=== PATIENT | female | born 1980 | race Caucasian/White ===

== ENCOUNTER 2021-11-22 19:58 | Inpatient (IN) ==
[2021-11-22] MEDS ORDERED: NON-FORMULARY MEDICATION 1 EACH EACH (Albuterol Sulfate 8.5 GM Hfa.Aer.Ad) IH PRN (21:32)
[2021-11-22] MEDS ORDERED: D5% in Water 1,000 ML IVC PRN (21:36)
[2021-11-22] MEDS ORDERED: Dextrose Gel 15 GM/37.5 ML TUBE PO PRN (21:36)
[2021-11-22] MEDS ORDERED: *HR* Dextrose 50 % in Water (Syg) 50 ML SYRINGE IVP PRN (21:36)
[2021-11-22] MEDS ORDERED: Albuterol 2.5 MG/3 ML NEBULIZER IH PRN (22:00)
[2021-11-22] MEDS: tiZANidine 4 MG TABLET PO PRN (22:22)
[2021-11-23 07:09] LABS: Basophils # 0.1 K/mcL (0.0-0.2); Basophils % 0.6 %; Eosinophils # 0.4 K/mcL (0.0-0.6); Eosinophils % 4.3 %; Hematocrit 38.7 % (35.3-44.9); Hemoglobin 11.6 g/dL (11.5-15.4); Immature Granulocytes % 0.8 % (0-4); Lymphocytes # 1.8 K/mcL (0.6-4.6); Lymphocytes % 19.9 %; Mean Corpuscular Hemoglobin 24.4 pg (28.0-33.3); Mean Corpuscular Volume 81.5 fL (83.0-100.0); Mean Platelet Volume 10.8 fL (9.4-12.4); Monocytes # 0.7 K/mcL (0.0-1.3); Monocytes % 7.6 %; Nucleated Red Blood Cells 0.4 /100 WBC (0); Platelet Count 279 K/mcL (140-400); Red Blood Count 4.75 M/mcL (3.82-4.97); Red Cell Distribution Width 16.7 % (11.5-14.5); Segmented Neutrophils % 66.8 %; White Blood Count 8.9 K/mcL (4.3-11.1)
[2021-11-23 07:23] LABS: BUN/Creatinine Ratio 12 (6-26); Blood Urea Nitrogen 9 mg/dL (6-20); Calcium 9.2 mg/dL (8.6-10.3); Carbon Dioxide 31 mEq/L (23-29); Chloride 98 mEq/L (98-107); Glucose 195 mg/dL (70-105); Osmolality,Calculated 292 (280-300); Potassium 3.9 mEq/L (3.5-5.1); Sodium 139 mEq/L (136-145); eGFR For African Americans > 60 (> 60); eGFR For Non-African Americans > 60 (> 60)
[2021-11-23] MEDS: Multivit/Ca/Min/Fe/FA 1 TAB TABLET PO SCH (08:20)
[2021-11-23] MEDS: Vitamin B Complex/Vit C/Vit E 1 EACH TABLET PO SCH (08:20)
[2021-11-23] MEDS: Metoprolol XL (24 HR) Succ 50 MG TAB.ER.24H PO SCH (08:21)
[2021-11-23] MEDS: lamoTRIgine 100 MG TABLET PO SCH ×2 (08:21→17:06)
[2021-11-23] MEDS: lisinopriL 5 MG TABLET PO SCH (08:21)
[2021-11-23] MEDS: Loratadine 10 MG TABLET PO SCH (08:21)
[2021-11-23] MEDS: Pregabalin 50 MG CAPSULE PO SCH ×3 (08:21→21:29)
[2021-11-23] MEDS: Furosemide 20 MG TABLET PO SCH (08:22)
[2021-11-23] MEDS: *HR* Enoxaparin 40 MG/0.4 ML SYRINGE SQ SCH (08:23)
[2021-11-23] MEDS: Insulin LISPRO 300 UNITS/3 ML VIAL SUBQ SCH ×3 (08:24→16:25)
[2021-11-23] MEDS: ALPHA LIPOIC ACID 600 MG PO SCH (08:29)
[2021-11-23] MEDS: (Fish Oil 1,000 Mg Softgel) PO SCH ×2 (08:29→21:30)
[2021-11-23] MEDS ORDERED: *HR* Metformin 500 MG TABLET PO SCH (09:00)
[2021-11-23] MEDS ORDERED: Cholecalciferol (D-3) 1,000 UNIT (25MCG) TABLET PO SCH (09:00)
[2021-11-23] MEDS: Ammonium Lactate 30 APPL/225 GM BOTTLE TP SCH (09:05)
[2021-11-23] MEDS: Ketoconazole 2% CRM 15 GM TUBE TP SCH (09:05)
[2021-11-23] MEDS: Cholecalciferol (D-3) 1,000 UNIT (25MCG) TABLET PO SCH (09:05)
[2021-11-23] MEDS: *HR* HYDROcodone/Acet 5/325 mg TABLET PO PRN (17:06)
[2021-11-23] MEDS: ARGININE 500 MG PO SCH (17:06)
[2021-11-23] MEDS: tiZANidine 4 MG TABLET PO PRN (17:06)
[2021-11-23] MEDS: *HR* Metformin 500 MG TABLET PO SCH (17:06)
[2021-11-23] MEDS: Mirtazapine 15 MG TABLET PO SCH (21:28)
[2021-11-24] MEDS: *HR* Enoxaparin 40 MG/0.4 ML SYRINGE SQ SCH (05:37)
[2021-11-24] MEDS: Insulin LISPRO 300 UNITS/3 ML VIAL SUBQ SCH ×4 (07:29→17:21)
[2021-11-24] MEDS: *HR* Metformin 500 MG TABLET PO SCH ×2 (07:31→17:21)
[2021-11-24] MEDS: Vitamin B Complex/Vit C/Vit E 1 EACH TABLET PO SCH (07:31)
[2021-11-24] MEDS: Pregabalin 50 MG CAPSULE PO SCH ×3 (07:31→19:59)
[2021-11-24] MEDS: Multivit/Ca/Min/Fe/FA 1 TAB TABLET PO SCH (07:31)
[2021-11-24] MEDS: Loratadine 10 MG TABLET PO SCH (07:32)
[2021-11-24] MEDS: lamoTRIgine 100 MG TABLET PO SCH ×2 (07:32→17:21)
[2021-11-24] MEDS: Furosemide 20 MG TABLET PO SCH (07:32)
[2021-11-24] MEDS: *HR* HYDROcodone/Acet 5/325 mg TABLET PO PRN ×2 (07:32→21:59)
[2021-11-24] MEDS: lisinopriL 5 MG TABLET PO SCH (07:32)
[2021-11-24] MEDS: Ammonium Lactate 30 APPL/225 GM BOTTLE TP SCH (07:32)
[2021-11-24] MEDS: Cholecalciferol (D-3) 1,000 UNIT (25MCG) TABLET PO SCH (07:32)
[2021-11-24] MEDS: tiZANidine 4 MG TABLET PO PRN ×2 (07:32→21:59)
[2021-11-24] MEDS: Metoprolol XL (24 HR) Succ 50 MG TAB.ER.24H PO SCH (07:32)
[2021-11-24] MEDS: (Fish Oil 1,000 Mg Softgel) PO SCH ×2 (07:33→20:00)
[2021-11-24] MEDS: Ketoconazole 2% CRM 15 GM TUBE TP SCH (07:33)
[2021-11-24] MEDS: ALPHA LIPOIC ACID 600 MG PO SCH (07:33)
[2021-11-24] MEDS: ARGININE 500 MG PO SCH (17:22)
[2021-11-24] MEDS: Mirtazapine 15 MG TABLET PO SCH (19:59)
[2021-11-25] MEDS: Nystatin POWDER 30 GM BOTTLE TP SCH ×4 (03:26→20:16)
[2021-11-25] MEDS: *HR* Enoxaparin 40 MG/0.4 ML SYRINGE SQ SCH (05:19)
[2021-11-25] MEDS: Insulin LISPRO 300 UNITS/3 ML VIAL SUBQ SCH ×3 (08:01→16:47)
[2021-11-25] MEDS: Loratadine 10 MG TABLET PO SCH (08:07)
[2021-11-25] MEDS: Vitamin B Complex/Vit C/Vit E 1 EACH TABLET PO SCH (08:07)
[2021-11-25] MEDS: Metoprolol XL (24 HR) Succ 50 MG TAB.ER.24H PO SCH (08:08)
[2021-11-25] MEDS: Furosemide 20 MG TABLET PO SCH (08:08)
[2021-11-25] MEDS: lamoTRIgine 100 MG TABLET PO SCH ×2 (08:08→17:03)
[2021-11-25] MEDS: Multivit/Ca/Min/Fe/FA 1 TAB TABLET PO SCH (08:08)
[2021-11-25] MEDS: Cholecalciferol (D-3) 1,000 UNIT (25MCG) TABLET PO SCH (08:08)
[2021-11-25] MEDS: *HR* Metformin 500 MG TABLET PO SCH ×2 (08:08→17:03)
[2021-11-25] MEDS: lisinopriL 5 MG TABLET PO SCH (08:08)
[2021-11-25] MEDS: Pregabalin 50 MG CAPSULE PO SCH ×3 (08:08→20:15)
[2021-11-25] MEDS: ALPHA LIPOIC ACID 600 MG PO SCH (08:09)
[2021-11-25] MEDS: (Fish Oil 1,000 Mg Softgel) PO SCH ×2 (08:09→20:20)
[2021-11-25] MEDS: tiZANidine 4 MG TABLET PO PRN ×2 (08:17→17:06)
[2021-11-25] MEDS: Ammonium Lactate 30 APPL/225 GM BOTTLE TP SCH (08:20)
[2021-11-25] MEDS: Ketoconazole 2% CRM 15 GM TUBE TP SCH (08:21)
[2021-11-25] MEDS: ARGININE 500 MG PO SCH (17:09)
[2021-11-25] MEDS: *HR* HYDROcodone/Acet 5/325 mg TABLET PO PRN (18:56)
[2021-11-25] MEDS: Mirtazapine 15 MG TABLET PO SCH (20:15)
[2021-11-26] MEDS: *HR* Enoxaparin 40 MG/0.4 ML SYRINGE SQ SCH (06:12)
[2021-11-26] MEDS: Insulin LISPRO 300 UNITS/3 ML VIAL SUBQ SCH ×3 (08:01→17:29)
[2021-11-26] MEDS: tiZANidine 4 MG TABLET PO PRN ×3 (08:07→23:55)
[2021-11-26] MEDS: Pregabalin 50 MG CAPSULE PO SCH ×3 (08:07→23:56)
[2021-11-26] MEDS: lamoTRIgine 100 MG TABLET PO SCH ×2 (08:07→17:28)
[2021-11-26] MEDS: Multivit/Ca/Min/Fe/FA 1 TAB TABLET PO SCH (08:07)
[2021-11-26] MEDS: *HR* Metformin 500 MG TABLET PO SCH ×2 (08:07→17:28)
[2021-11-26] MEDS: *HR* HYDROcodone/Acet 5/325 mg TABLET PO PRN ×3 (08:08→23:53)
[2021-11-26] MEDS: Furosemide 20 MG TABLET PO SCH (08:08)
[2021-11-26] MEDS: Metoprolol XL (24 HR) Succ 50 MG TAB.ER.24H PO SCH (08:08)
[2021-11-26] MEDS: Cholecalciferol (D-3) 1,000 UNIT (25MCG) TABLET PO SCH (08:08)
[2021-11-26] MEDS: Ammonium Lactate 30 APPL/225 GM BOTTLE TP SCH (08:08)
[2021-11-26] MEDS: Loratadine 10 MG TABLET PO SCH (08:08)
[2021-11-26] MEDS: Vitamin B Complex/Vit C/Vit E 1 EACH TABLET PO SCH (08:08)
[2021-11-26] MEDS: lisinopriL 5 MG TABLET PO SCH (08:08)
[2021-11-26] MEDS: (Fish Oil 1,000 Mg Softgel) PO SCH ×2 (08:09→23:57)
[2021-11-26] MEDS: ALPHA LIPOIC ACID 600 MG PO SCH (08:09)
[2021-11-26] MEDS: Ketoconazole 2% CRM 15 GM TUBE TP SCH (08:09)
[2021-11-26] MEDS: Nystatin POWDER 30 GM BOTTLE TP SCH ×2 (08:09→15:10)
[2021-11-26] MEDS: ARGININE 500 MG PO SCH (17:26)
[2021-11-26] MEDS: Mirtazapine 15 MG TABLET PO SCH (23:57)
[2021-11-27] MEDS: Nystatin POWDER 30 GM BOTTLE TP SCH ×4 (02:30→20:59)
[2021-11-27] MEDS: lisinopriL 5 MG TABLET PO SCH (08:58)
[2021-11-27] MEDS: lamoTRIgine 100 MG TABLET PO SCH ×2 (08:58→17:03)
[2021-11-27] MEDS: Vitamin B Complex/Vit C/Vit E 1 EACH TABLET PO SCH (08:58)
[2021-11-27] MEDS: Multivit/Ca/Min/Fe/FA 1 TAB TABLET PO SCH (08:58)
[2021-11-27] MEDS: *HR* Enoxaparin 40 MG/0.4 ML SYRINGE SQ SCH (08:58)
[2021-11-27] MEDS: Pregabalin 50 MG CAPSULE PO SCH ×3 (08:58→21:00)
[2021-11-27] MEDS: Furosemide 20 MG TABLET PO SCH (08:58)
[2021-11-27] MEDS: Loratadine 10 MG TABLET PO SCH (08:58)
[2021-11-27] MEDS: Metoprolol XL (24 HR) Succ 50 MG TAB.ER.24H PO SCH (08:58)
[2021-11-27] MEDS: *HR* HYDROcodone/Acet 5/325 mg TABLET PO PRN ×2 (08:58→17:07)
[2021-11-27] MEDS: ALPHA LIPOIC ACID 600 MG PO SCH (08:59)
[2021-11-27] MEDS: (Fish Oil 1,000 Mg Softgel) PO SCH ×2 (08:59→21:01)
[2021-11-27] MEDS: *HR* Metformin 500 MG TABLET PO SCH ×2 (08:59→17:03)
[2021-11-27] MEDS: Cholecalciferol (D-3) 1,000 UNIT (25MCG) TABLET PO SCH (08:59)
[2021-11-27] MEDS: Ammonium Lactate 30 APPL/225 GM BOTTLE TP SCH (08:59)
[2021-11-27] MEDS: Insulin LISPRO 300 UNITS/3 ML VIAL SUBQ SCH ×3 (09:00→17:04)
[2021-11-27] MEDS: Ketoconazole 2% CRM 15 GM TUBE TP SCH (09:00)
[2021-11-27] MEDS: ARGININE 500 MG PO SCH (17:04)
[2021-11-27] MEDS: tiZANidine 4 MG TABLET PO PRN (17:07)
[2021-11-27] MEDS: Mirtazapine 15 MG TABLET PO SCH (21:00)
[2021-11-28] MEDS: *HR* Enoxaparin 40 MG/0.4 ML SYRINGE SQ SCH (05:31)
[2021-11-28] MEDS: Insulin LISPRO 300 UNITS/3 ML VIAL SUBQ SCH ×3 (07:55→16:01)
[2021-11-28] MEDS: lisinopriL 5 MG TABLET PO SCH (08:34)
[2021-11-28] MEDS: lamoTRIgine 100 MG TABLET PO SCH ×2 (08:34→18:08)
[2021-11-28] MEDS: Metoprolol XL (24 HR) Succ 50 MG TAB.ER.24H PO SCH (08:34)
[2021-11-28] MEDS: Pregabalin 50 MG CAPSULE PO SCH ×3 (08:34→22:23)
[2021-11-28] MEDS: Furosemide 20 MG TABLET PO SCH (08:34)
[2021-11-28] MEDS: Multivit/Ca/Min/Fe/FA 1 TAB TABLET PO SCH (08:34)
[2021-11-28] MEDS: Vitamin B Complex/Vit C/Vit E 1 EACH TABLET PO SCH (08:34)
[2021-11-28] MEDS: *HR* Metformin 500 MG TABLET PO SCH ×2 (08:34→16:01)
[2021-11-28] MEDS: Cholecalciferol (D-3) 1,000 UNIT (25MCG) TABLET PO SCH (08:34)
[2021-11-28] MEDS: Loratadine 10 MG TABLET PO SCH (08:34)
[2021-11-28] MEDS: (Fish Oil 1,000 Mg Softgel) PO SCH ×2 (08:34→22:43)
[2021-11-28] MEDS: ALPHA LIPOIC ACID 600 MG PO SCH (08:35)
[2021-11-28] MEDS: tiZANidine 4 MG TABLET PO PRN ×2 (08:41→18:07)
[2021-11-28] MEDS: Ketoconazole 2% CRM 15 GM TUBE TP SCH (08:46)
[2021-11-28] MEDS: Ammonium Lactate 30 APPL/225 GM BOTTLE TP SCH (08:46)
[2021-11-28] MEDS: Nystatin POWDER 30 GM BOTTLE TP SCH ×3 (08:46→22:28)
[2021-11-28] MEDS: *HR* LORazepam 1 MG TABLET PO PRN (09:30)
[2021-11-28] MEDS: *HR* HYDROcodone/Acet 5/325 mg TABLET PO PRN (16:03)
[2021-11-28] MEDS: ARGININE 500 MG PO SCH (18:02)
[2021-11-28] MEDS: Mirtazapine 15 MG TABLET PO SCH (22:24)
[2021-11-29] MEDS: *HR* HYDROcodone/Acet 5/325 mg TABLET PO PRN ×3 (02:10→20:16)
[2021-11-29] MEDS: tiZANidine 4 MG TABLET PO PRN ×3 (02:14→20:16)
[2021-11-29] MEDS: *HR* Enoxaparin 40 MG/0.4 ML SYRINGE SQ SCH (06:10)
[2021-11-29] MEDS: Insulin LISPRO 300 UNITS/3 ML VIAL SUBQ SCH ×3 (11:11→17:42)
[2021-11-29] MEDS: Metoprolol XL (24 HR) Succ 50 MG TAB.ER.24H PO SCH (11:22)
[2021-11-29] MEDS: Nystatin POWDER 30 GM BOTTLE TP SCH ×3 (11:22→20:22)
[2021-11-29] MEDS: lisinopriL 5 MG TABLET PO SCH (11:22)
[2021-11-29] MEDS: Furosemide 20 MG TABLET PO SCH (11:22)
[2021-11-29] MEDS: Pregabalin 50 MG CAPSULE PO SCH ×3 (11:22→20:17)
[2021-11-29] MEDS: Multivit/Ca/Min/Fe/FA 1 TAB TABLET PO SCH (11:22)
[2021-11-29] MEDS: lamoTRIgine 100 MG TABLET PO SCH ×2 (11:23→17:55)
[2021-11-29] MEDS: Loratadine 10 MG TABLET PO SCH (11:23)
[2021-11-29] MEDS: Vitamin B Complex/Vit C/Vit E 1 EACH TABLET PO SCH (11:23)
[2021-11-29] MEDS: Cholecalciferol (D-3) 1,000 UNIT (25MCG) TABLET PO SCH (11:23)
[2021-11-29] MEDS: (Fish Oil 1,000 Mg Softgel) PO SCH ×2 (11:24→20:18)
[2021-11-29] MEDS: ALPHA LIPOIC ACID 600 MG PO SCH (11:25)
[2021-11-29] MEDS: Ketoconazole 2% CRM 15 GM TUBE TP SCH (11:31)
[2021-11-29] MEDS: Ammonium Lactate 30 APPL/225 GM BOTTLE TP SCH (11:31)
[2021-11-29] MEDS: *HR* Metformin 500 MG TABLET PO SCH ×2 (11:50→15:38)
[2021-11-29] MEDS: ARGININE 500 MG PO SCH (19:02)
[2021-11-29] MEDS: Mirtazapine 15 MG TABLET PO SCH (20:20)
[2021-11-30] MEDS ORDERED: GuaiFENesin/Pseudophedrine TABLET PO ONE (02:45)
[2021-11-30] MEDS ORDERED: Oxymetazoline Nasal SPRAY BOTTLE 15ML NS PRN (02:46)
[2021-11-30] MEDS ORDERED: Saline Nasal Spray 44 ML BOTTLE NS PRN (02:48)
[2021-11-30] MEDS: *HR* HYDROcodone/Acet 5/325 mg TABLET PO PRN ×3 (03:35→21:55)
[2021-11-30] MEDS: Metoprolol XL (24 HR) Succ 50 MG TAB.ER.24H PO SCH (08:06)
[2021-11-30] MEDS: Pregabalin 50 MG CAPSULE PO SCH ×3 (08:06→20:13)
[2021-11-30] MEDS: Furosemide 20 MG TABLET PO SCH (08:06)
[2021-11-30] MEDS: lisinopriL 5 MG TABLET PO SCH (08:06)
[2021-11-30] MEDS: Vitamin B Complex/Vit C/Vit E 1 EACH TABLET PO SCH (08:06)
[2021-11-30] MEDS: Loratadine 10 MG TABLET PO SCH (08:06)
[2021-11-30] MEDS: Multivit/Ca/Min/Fe/FA 1 TAB TABLET PO SCH (08:06)
[2021-11-30] MEDS: lamoTRIgine 100 MG TABLET PO SCH ×2 (08:06→17:28)
[2021-11-30] MEDS: Cholecalciferol (D-3) 1,000 UNIT (25MCG) TABLET PO SCH (08:06)
[2021-11-30] MEDS: Ketoconazole 2% CRM 15 GM TUBE TP SCH (08:07)
[2021-11-30] MEDS: Nystatin POWDER 30 GM BOTTLE TP SCH ×3 (08:07→20:15)
[2021-11-30] MEDS: Ammonium Lactate 30 APPL/225 GM BOTTLE TP SCH (08:07)
[2021-11-30] MEDS: *HR* Metformin 500 MG TABLET PO SCH ×2 (08:08→17:28)
[2021-11-30] MEDS: tiZANidine 4 MG TABLET PO PRN ×2 (08:28→17:28)
[2021-11-30] MEDS: Insulin LISPRO 300 UNITS/3 ML VIAL SUBQ SCH ×3 (08:29→17:28)
[2021-11-30] MEDS: *HR* Enoxaparin 40 MG/0.4 ML SYRINGE SQ SCH (08:29)
[2021-11-30] MEDS: ALPHA LIPOIC ACID 600 MG PO SCH (08:32)
[2021-11-30] MEDS: (Fish Oil 1,000 Mg Softgel) PO SCH ×2 (08:32→20:18)
[2021-11-30] MEDS ORDERED: Fluticasone Propionate Nasal 50 MCG/SPRAY BOTTLE NS SCH (09:00)
[2021-11-30] MEDS: polyethylene glycoL 3350 17 GM POWD.PACK PO PRN ×2 (09:02→21:53)
[2021-11-30] MEDS: ARGININE 500 MG PO SCH ×2 (17:53→17:54)
[2021-11-30] MEDS: Mirtazapine 15 MG TABLET PO SCH (20:13)
[2021-12-01] MEDS: tiZANidine 4 MG TABLET PO PRN ×2 (02:51→16:24)
[2021-12-01] MEDS: *HR* Enoxaparin 40 MG/0.4 ML SYRINGE SQ SCH (06:34)
[2021-12-01] MEDS: Vitamin B Complex/Vit C/Vit E 1 EACH TABLET PO SCH (08:42)
[2021-12-01] MEDS: Loratadine 10 MG TABLET PO SCH (08:42)
[2021-12-01] MEDS: Multivit/Ca/Min/Fe/FA 1 TAB TABLET PO SCH (08:42)
[2021-12-01] MEDS: Furosemide 20 MG TABLET PO SCH (08:42)
[2021-12-01] MEDS: *HR* Metformin 500 MG TABLET PO SCH ×2 (08:42→16:24)
[2021-12-01] MEDS: lisinopriL 5 MG TABLET PO SCH (08:43)
[2021-12-01] MEDS: Cholecalciferol (D-3) 1,000 UNIT (25MCG) TABLET PO SCH (08:43)
[2021-12-01] MEDS: Ketoconazole 2% CRM 15 GM TUBE TP SCH (08:43)
[2021-12-01] MEDS: Metoprolol XL (24 HR) Succ 50 MG TAB.ER.24H PO SCH (08:43)
[2021-12-01] MEDS: lamoTRIgine 100 MG TABLET PO SCH ×2 (08:43→17:04)
[2021-12-01] MEDS: Insulin LISPRO 300 UNITS/3 ML VIAL SUBQ SCH ×3 (08:43→16:26)
[2021-12-01] MEDS: Pregabalin 50 MG CAPSULE PO SCH ×3 (08:43→20:06)
[2021-12-01] MEDS: Ammonium Lactate 30 APPL/225 GM BOTTLE TP SCH (08:43)
[2021-12-01] MEDS: Nystatin POWDER 30 GM BOTTLE TP SCH ×3 (08:44→21:13)
[2021-12-01] MEDS: (Fish Oil 1,000 Mg Softgel) PO SCH ×2 (10:13→21:14)
[2021-12-01] MEDS: ALPHA LIPOIC ACID 600 MG PO SCH (10:13)
[2021-12-01] MEDS: *HR* HYDROcodone/Acet 5/325 mg TABLET PO PRN (16:24)
[2021-12-01] MEDS: ARGININE 500 MG PO SCH (17:05)
[2021-12-01] MEDS: Mirtazapine 15 MG TABLET PO SCH (20:06)
[2021-12-01] MEDS: polyethylene glycoL 3350 17 GM POWD.PACK PO PRN (20:18)
[2021-12-02] MEDS: *HR* HYDROcodone/Acet 5/325 mg TABLET PO PRN ×4 (00:41→21:33)
[2021-12-02] MEDS: tiZANidine 4 MG TABLET PO PRN ×3 (00:42→17:42)
[2021-12-02] MEDS: *HR* Enoxaparin 40 MG/0.4 ML SYRINGE SQ SCH (05:27)
[2021-12-02] MEDS: Insulin LISPRO 300 UNITS/3 ML VIAL SUBQ SCH ×3 (07:34→16:52)
[2021-12-02] MEDS: Pregabalin 50 MG CAPSULE PO SCH ×3 (07:37→20:06)
[2021-12-02] MEDS: Vitamin B Complex/Vit C/Vit E 1 EACH TABLET PO SCH (07:38)
[2021-12-02] MEDS: Loratadine 10 MG TABLET PO SCH (07:38)
[2021-12-02] MEDS: lisinopriL 5 MG TABLET PO SCH (07:39)
[2021-12-02] MEDS: Multivit/Ca/Min/Fe/FA 1 TAB TABLET PO SCH (07:39)
[2021-12-02] MEDS: *HR* Metformin 500 MG TABLET PO SCH ×2 (07:39→17:43)
[2021-12-02] MEDS: Cholecalciferol (D-3) 1,000 UNIT (25MCG) TABLET PO SCH (07:39)
[2021-12-02] MEDS: Furosemide 20 MG TABLET PO SCH (07:39)
[2021-12-02] MEDS: Metoprolol XL (24 HR) Succ 50 MG TAB.ER.24H PO SCH (07:40)
[2021-12-02] MEDS: lamoTRIgine 100 MG TABLET PO SCH ×2 (07:40→17:43)
[2021-12-02] MEDS: Ketoconazole 2% CRM 15 GM TUBE TP SCH (07:41)
[2021-12-02] MEDS: Ammonium Lactate 30 APPL/225 GM BOTTLE TP SCH (07:41)
[2021-12-02] MEDS: Nystatin POWDER 30 GM BOTTLE TP SCH ×3 (07:41→20:09)
[2021-12-02] MEDS: ALPHA LIPOIC ACID 600 MG PO SCH (07:42)
[2021-12-02] MEDS: (Fish Oil 1,000 Mg Softgel) PO SCH ×2 (07:42→20:09)
[2021-12-02] MEDS: ARGININE 500 MG PO SCH (17:46)
[2021-12-02] MEDS: Mirtazapine 15 MG TABLET PO SCH (20:05)
[2021-12-03] MEDS: tiZANidine 4 MG TABLET PO PRN ×3 (01:34→23:09)
[2021-12-03] MEDS: *HR* HYDROcodone/Acet 5/325 mg TABLET PO PRN ×4 (03:25→23:09)
[2021-12-03] MEDS: *HR* Enoxaparin 40 MG/0.4 ML SYRINGE SQ SCH (05:30)
[2021-12-03] MEDS: Insulin LISPRO 300 UNITS/3 ML VIAL SUBQ SCH ×3 (07:43→17:29)
[2021-12-03] MEDS: Pregabalin 50 MG CAPSULE PO SCH ×3 (07:44→20:30)
[2021-12-03] MEDS: Vitamin B Complex/Vit C/Vit E 1 EACH TABLET PO SCH (07:45)
[2021-12-03] MEDS: Multivit/Ca/Min/Fe/FA 1 TAB TABLET PO SCH (07:45)
[2021-12-03] MEDS: Loratadine 10 MG TABLET PO SCH (07:46)
[2021-12-03] MEDS: Metoprolol XL (24 HR) Succ 50 MG TAB.ER.24H PO SCH (07:46)
[2021-12-03] MEDS: Cholecalciferol (D-3) 1,000 UNIT (25MCG) TABLET PO SCH (07:46)
[2021-12-03] MEDS: Furosemide 20 MG TABLET PO SCH (07:46)
[2021-12-03] MEDS: (Fish Oil 1,000 Mg Softgel) PO SCH ×2 (07:47→20:32)
[2021-12-03] MEDS: lisinopriL 5 MG TABLET PO SCH (07:47)
[2021-12-03] MEDS: lamoTRIgine 100 MG TABLET PO SCH ×2 (07:47→17:28)
[2021-12-03] MEDS: Ketoconazole 2% CRM 15 GM TUBE TP SCH (07:48)
[2021-12-03] MEDS: Ammonium Lactate 30 APPL/225 GM BOTTLE TP SCH (07:48)
[2021-12-03] MEDS: ALPHA LIPOIC ACID 600 MG PO SCH (07:48)
[2021-12-03] MEDS: Nystatin POWDER 30 GM BOTTLE TP SCH ×3 (07:48→20:31)
[2021-12-03] MEDS: Dulaglutide [Trulicity] 1.5 MG/0.5 ML Pen.Injctr SQ SCH (08:01)
[2021-12-03] MEDS: *HR* Metformin 500 MG TABLET PO SCH ×2 (08:01→17:28)
[2021-12-03] MEDS: ARGININE 500 MG PO SCH (17:29)
[2021-12-03] MEDS: Mirtazapine 15 MG TABLET PO SCH (20:30)
[2021-12-04] MEDS ORDERED: *HR* OxyCODONE Immed Rel 5 MG TABLET PO ONE (04:05)
[2021-12-04] MEDS: *HR* Enoxaparin 40 MG/0.4 ML SYRINGE SQ SCH (04:47)
[2021-12-04] MEDS: Insulin LISPRO 300 UNITS/3 ML VIAL SUBQ SCH ×3 (08:09→16:49)
[2021-12-04] MEDS: Pregabalin 50 MG CAPSULE PO SCH ×3 (08:10→20:01)
[2021-12-04] MEDS: Metoprolol XL (24 HR) Succ 50 MG TAB.ER.24H PO SCH (08:11)
[2021-12-04] MEDS: Cholecalciferol (D-3) 1,000 UNIT (25MCG) TABLET PO SCH (08:11)
[2021-12-04] MEDS: *HR* Metformin 500 MG TABLET PO SCH ×2 (08:11→17:19)
[2021-12-04] MEDS: Furosemide 20 MG TABLET PO SCH (08:11)
[2021-12-04] MEDS: Multivit/Ca/Min/Fe/FA 1 TAB TABLET PO SCH (08:11)
[2021-12-04] MEDS: Loratadine 10 MG TABLET PO SCH (08:11)
[2021-12-04] MEDS: lisinopriL 5 MG TABLET PO SCH (08:11)
[2021-12-04] MEDS: Vitamin B Complex/Vit C/Vit E 1 EACH TABLET PO SCH (08:11)
[2021-12-04] MEDS: lamoTRIgine 100 MG TABLET PO SCH ×2 (08:12→17:19)
[2021-12-04] MEDS: Ketoconazole 2% CRM 15 GM TUBE TP SCH (08:13)
[2021-12-04] MEDS: Nystatin POWDER 30 GM BOTTLE TP SCH ×3 (08:13→20:07)
[2021-12-04] MEDS: Ammonium Lactate 30 APPL/225 GM BOTTLE TP SCH (08:14)
[2021-12-04] MEDS: (Fish Oil 1,000 Mg Softgel) PO SCH ×2 (08:15→22:06)
[2021-12-04] MEDS: ALPHA LIPOIC ACID 600 MG PO SCH (08:15)
[2021-12-04] MEDS: *HR* HYDROcodone/Acet 5/325 mg TABLET PO PRN ×3 (10:05→23:18)
[2021-12-04] MEDS: ARGININE 500 MG PO SCH (17:19)
[2021-12-04] MEDS: Mirtazapine 15 MG TABLET PO SCH (20:03)
[2021-12-04] MEDS: tiZANidine 4 MG TABLET PO PRN (20:12)
[2021-12-05] MEDS: *HR* Enoxaparin 40 MG/0.4 ML SYRINGE SQ SCH (05:25)
[2021-12-05] MEDS: *HR* HYDROcodone/Acet 5/325 mg TABLET PO PRN ×3 (06:12→23:58)
[2021-12-05] MEDS: *HR* LORazepam 1 MG TABLET PO PRN (06:43)
[2021-12-05] MEDS: Insulin LISPRO 300 UNITS/3 ML VIAL SUBQ SCH ×3 (08:26→16:44)
[2021-12-05] MEDS: Pregabalin 50 MG CAPSULE PO SCH ×3 (08:37→22:16)
[2021-12-05] MEDS: lisinopriL 5 MG TABLET PO SCH (08:37)
[2021-12-05] MEDS: *HR* Metformin 500 MG TABLET PO SCH (08:38)
[2021-12-05] MEDS: Loratadine 10 MG TABLET PO SCH (08:38)
[2021-12-05] MEDS: Furosemide 20 MG TABLET PO SCH (08:38)
[2021-12-05] MEDS: Multivit/Ca/Min/Fe/FA 1 TAB TABLET PO SCH (08:38)
[2021-12-05] MEDS: Metoprolol XL (24 HR) Succ 50 MG TAB.ER.24H PO SCH (08:38)
[2021-12-05] MEDS: lamoTRIgine 100 MG TABLET PO SCH ×2 (08:38→16:54)
[2021-12-05] MEDS: Cholecalciferol (D-3) 1,000 UNIT (25MCG) TABLET PO SCH (08:38)
[2021-12-05] MEDS: Nystatin POWDER 30 GM BOTTLE TP SCH ×3 (08:39→22:17)
[2021-12-05] MEDS: Ammonium Lactate 30 APPL/225 GM BOTTLE TP SCH (08:46)
[2021-12-05] MEDS: Ketoconazole 2% CRM 15 GM TUBE TP SCH (08:51)
[2021-12-05] MEDS: (Fish Oil 1,000 Mg Softgel) PO SCH ×2 (08:52→22:17)
[2021-12-05] MEDS: ALPHA LIPOIC ACID 600 MG PO SCH (08:52)
[2021-12-05 09:07] LABS: Hematocrit 38.8 % (35.3-44.9); Hemoglobin 11.9 g/dL (11.5-15.4); Mean Corpuscular HGB Conc 30.7 g/dL (31.6-35.5); Mean Corpuscular Hemoglobin 24.6 pg (28.0-33.3); Mean Corpuscular Volume 80.3 fL (83.0-100.0); Mean Platelet Volume 10.9 fL (9.4-12.4); Platelet Count 278 K/mcL (140-400); Red Blood Count 4.83 M/mcL (3.82-4.97); White Blood Count 8.5 K/mcL (4.3-11.1)
[2021-12-05] MEDS: Vitamin B Complex/Vit C/Vit E 1 EACH TABLET PO SCH (09:07)
[2021-12-05 09:26] LABS: BUN/Creatinine Ratio 14 (6-26); Blood Urea Nitrogen 11 mg/dL (6-20); Calcium 9.6 mg/dL (8.6-10.3); Carbon Dioxide 32 mEq/L (23-29); Chloride 98 mEq/L (98-107); Glucose 102 mg/dL (70-105); Osmolality,Calculated 286 (280-300); Potassium 4.1 mEq/L (3.5-5.1); Sodium 138 mEq/L (136-145); eGFR For African Americans > 60 (> 60); eGFR For Non-African Americans > 60 (> 60)
[2021-12-05] MEDS: ARGININE 500 MG PO SCH (16:53)
[2021-12-05] MEDS: tiZANidine 4 MG TABLET PO PRN (17:07)
[2021-12-05] MEDS: Mirtazapine 15 MG TABLET PO SCH (22:10)
[2021-12-05] MEDS: Dextrose Gel 15 GM/37.5 ML TUBE PO PRN ×2 (22:21→22:50)
[2021-12-05] MEDS ORDERED: Dextrose Gel 15 GM/37.5 ML TUBE PO ONE (22:46)
[2021-12-06] MEDS: *HR* Enoxaparin 40 MG/0.4 ML SYRINGE SQ SCH (06:52)
[2021-12-06] MEDS: Pregabalin 50 MG CAPSULE PO SCH ×3 (09:28→20:59)
[2021-12-06] MEDS: Insulin LISPRO 300 UNITS/3 ML VIAL SUBQ SCH ×3 (09:28→16:06)
[2021-12-06] MEDS: Multivit/Ca/Min/Fe/FA 1 TAB TABLET PO SCH (09:29)
[2021-12-06] MEDS: Furosemide 20 MG TABLET PO SCH (09:30)
[2021-12-06] MEDS: lamoTRIgine 100 MG TABLET PO SCH ×2 (09:30→18:03)
[2021-12-06] MEDS: Cholecalciferol (D-3) 1,000 UNIT (25MCG) TABLET PO SCH (09:30)
[2021-12-06] MEDS: Vitamin B Complex/Vit C/Vit E 1 EACH TABLET PO SCH (09:30)
[2021-12-06] MEDS: ALPHA LIPOIC ACID 600 MG PO SCH (09:31)
[2021-12-06] MEDS: (Fish Oil 1,000 Mg Softgel) PO SCH ×2 (09:31→21:07)
[2021-12-06] MEDS: lisinopriL 5 MG TABLET PO SCH (09:31)
[2021-12-06] MEDS: Loratadine 10 MG TABLET PO SCH (09:31)
[2021-12-06] MEDS: Metoprolol XL (24 HR) Succ 50 MG TAB.ER.24H PO SCH (09:31)
[2021-12-06] MEDS: Ammonium Lactate 30 APPL/225 GM BOTTLE TP SCH (09:33)
[2021-12-06] MEDS: Nystatin POWDER 30 GM BOTTLE TP SCH ×3 (09:33→21:02)
[2021-12-06] MEDS: Ketoconazole 2% CRM 15 GM TUBE TP SCH (09:35)
[2021-12-06] MEDS: *HR* HYDROcodone/Acet 5/325 mg TABLET PO PRN ×3 (09:38→21:32)
[2021-12-06] MEDS: tiZANidine 4 MG TABLET PO PRN ×2 (09:39→18:02)
[2021-12-06] MEDS: ARGININE 500 MG PO SCH (18:03)
[2021-12-06] MEDS: polyethylene glycoL 3350 17 GM POWD.PACK PO PRN (18:40)
[2021-12-06] MEDS: Mirtazapine 15 MG TABLET PO SCH (21:00)
[2021-12-07] MEDS: *HR* Enoxaparin 40 MG/0.4 ML SYRINGE SQ SCH (05:56)
[2021-12-07] MEDS: Insulin LISPRO 300 UNITS/3 ML VIAL SUBQ SCH ×3 (09:27→17:15)
[2021-12-07] MEDS: tiZANidine 4 MG TABLET PO PRN ×2 (09:27→17:31)
[2021-12-07] MEDS: Multivit/Ca/Min/Fe/FA 1 TAB TABLET PO SCH (09:28)
[2021-12-07] MEDS: Pregabalin 50 MG CAPSULE PO SCH ×3 (09:28→20:34)
[2021-12-07] MEDS: *HR* HYDROcodone/Acet 5/325 mg TABLET PO PRN ×2 (09:29→17:30)
[2021-12-07] MEDS: Metoprolol XL (24 HR) Succ 50 MG TAB.ER.24H PO SCH (09:29)
[2021-12-07] MEDS: Cholecalciferol (D-3) 1,000 UNIT (25MCG) TABLET PO SCH (09:30)
[2021-12-07] MEDS: Vitamin B Complex/Vit C/Vit E 1 EACH TABLET PO SCH (09:30)
[2021-12-07] MEDS: lisinopriL 5 MG TABLET PO SCH (09:30)
[2021-12-07] MEDS: Furosemide 20 MG TABLET PO SCH (09:30)
[2021-12-07] MEDS: Loratadine 10 MG TABLET PO SCH (09:31)
[2021-12-07] MEDS: Nystatin POWDER 30 GM BOTTLE TP SCH ×3 (09:31→20:36)
[2021-12-07] MEDS: Ammonium Lactate 30 APPL/225 GM BOTTLE TP SCH (09:31)
[2021-12-07] MEDS: lamoTRIgine 100 MG TABLET PO SCH ×2 (09:31→17:13)
[2021-12-07] MEDS: ALPHA LIPOIC ACID 600 MG PO SCH (09:32)
[2021-12-07] MEDS: (Fish Oil 1,000 Mg Softgel) PO SCH ×2 (09:32→20:35)
[2021-12-07] MEDS: Ketoconazole 2% CRM 15 GM TUBE TP SCH (09:32)
[2021-12-07] MEDS: ARGININE 500 MG PO SCH (17:15)
[2021-12-07] MEDS: Mirtazapine 15 MG TABLET PO SCH (20:34)
[2021-12-08] MEDS: *HR* HYDROcodone/Acet 5/325 mg TABLET PO PRN ×3 (05:46→22:57)
[2021-12-08] MEDS: *HR* Enoxaparin 40 MG/0.4 ML SYRINGE SQ SCH (05:46)
[2021-12-08] MEDS: Insulin LISPRO 300 UNITS/3 ML VIAL SUBQ SCH ×3 (09:28→17:40)
[2021-12-08] MEDS: Vitamin B Complex/Vit C/Vit E 1 EACH TABLET PO SCH (09:35)
[2021-12-08] MEDS: Multivit/Ca/Min/Fe/FA 1 TAB TABLET PO SCH (09:35)
[2021-12-08] MEDS: lisinopriL 5 MG TABLET PO SCH (09:35)
[2021-12-08] MEDS: Metoprolol XL (24 HR) Succ 50 MG TAB.ER.24H PO SCH (09:35)
[2021-12-08] MEDS: Pregabalin 50 MG CAPSULE PO SCH ×3 (09:35→22:58)
[2021-12-08] MEDS: tiZANidine 4 MG TABLET PO PRN ×2 (09:35→17:41)
[2021-12-08] MEDS: Cholecalciferol (D-3) 1,000 UNIT (25MCG) TABLET PO SCH (09:35)
[2021-12-08] MEDS: lamoTRIgine 100 MG TABLET PO SCH ×2 (09:35→17:41)
[2021-12-08] MEDS: Furosemide 20 MG TABLET PO SCH (09:36)
[2021-12-08] MEDS: Loratadine 10 MG TABLET PO SCH (09:36)
[2021-12-08] MEDS: (Fish Oil 1,000 Mg Softgel) PO SCH (09:37)
[2021-12-08] MEDS: ALPHA LIPOIC ACID 600 MG PO SCH (09:37)
[2021-12-08] MEDS: Nystatin POWDER 30 GM BOTTLE TP SCH ×3 (13:50→22:59)
[2021-12-08] MEDS: Ketoconazole 2% CRM 15 GM TUBE TP SCH (13:51)
[2021-12-08] MEDS: Ammonium Lactate 30 APPL/225 GM BOTTLE TP SCH (13:51)
[2021-12-08] MEDS: ARGININE 500 MG PO SCH (17:45)
[2021-12-08] MEDS: polyethylene glycoL 3350 17 GM POWD.PACK PO PRN (17:54)
[2021-12-08] MEDS: Mirtazapine 15 MG TABLET PO SCH (22:58)
[2021-12-09] MEDS: (Fish Oil 1,000 Mg Softgel) PO SCH ×3 (01:23→23:04)
[2021-12-09] MEDS: *HR* Enoxaparin 40 MG/0.4 ML SYRINGE SQ SCH (06:38)
[2021-12-09] MEDS: lisinopriL 5 MG TABLET PO SCH (08:39)
[2021-12-09] MEDS: Pregabalin 50 MG CAPSULE PO SCH ×3 (08:39→23:00)
[2021-12-09] MEDS: Multivit/Ca/Min/Fe/FA 1 TAB TABLET PO SCH (08:39)
[2021-12-09] MEDS: Metoprolol XL (24 HR) Succ 50 MG TAB.ER.24H PO SCH (08:39)
[2021-12-09] MEDS: Loratadine 10 MG TABLET PO SCH (08:39)
[2021-12-09] MEDS: Cholecalciferol (D-3) 1,000 UNIT (25MCG) TABLET PO SCH (08:39)
[2021-12-09] MEDS: lamoTRIgine 100 MG TABLET PO SCH ×2 (08:39→17:41)
[2021-12-09] MEDS: Vitamin B Complex/Vit C/Vit E 1 EACH TABLET PO SCH (08:39)
[2021-12-09] MEDS: Furosemide 20 MG TABLET PO SCH (08:39)
[2021-12-09] MEDS: Nystatin POWDER 30 GM BOTTLE TP SCH ×3 (08:45→17:41)
[2021-12-09] MEDS: Insulin LISPRO 300 UNITS/3 ML VIAL SUBQ SCH ×3 (08:46→17:28)
[2021-12-09] MEDS: ALPHA LIPOIC ACID 600 MG PO SCH (08:47)
[2021-12-09] MEDS: Ammonium Lactate 30 APPL/225 GM BOTTLE TP SCH (09:08)
[2021-12-09] MEDS: Acetaminophen 325 MG TABLET PO PRN ×3 (09:21→23:00)
[2021-12-09] MEDS ORDERED: 0.9 % Sodium Chloride 500 ML IVC ONE (11:53)
[2021-12-09 11:55] LABS: Adenovirus Not Detected (Not Detect); Coronavirus 229E Not Detected (Not Detect)
[2021-12-09 11:56] LABS: Bordetella Pertussis Not Detected (Not Detect); Chlamydophila pneumoniae Not Detected (Not Detect); Coronavirus HKU1 Not Detected (Not Detect); Coronavirus NL63 Not Detected (Not Detect); Coronavirus OC43 Not Detected (Not Detect); Human Metapneumovirus Not Detected (Not Detect); Human Rhinovirus/Enterovirus Not Detected (Not Detect); Influenza A Subtype 2009 H1 Not Detected (Not Detect); Influenza B Not Detected (Not Detect); Mycoplasma pneumoniae Not Detected (Not Detect); Parainfluenza Virus 1 Not Detected (Not Detect); Parainfluenza Virus 2 Not Detected (Not Detect); Parainfluenza Virus 3 Not Detected (Not Detect); Parainfluenza Virus 4 Not Detected (Not Detect); Respiratory Syncytial Virus Not Detected (Not Detect); SARS-CoV-2 Not Detected (Not Detect)
[2021-12-09] MEDS ORDERED: 0.9 % Sodium Chloride 1,000 ML ONE (11:56)
[2021-12-09 12:00] LABS: Bilirubin,Urine Negative (Negative); Blood,Urine Large (Negative); Clarity,Urine Clear (Clear); Color,Urine Yellow (Yellow); Glucose,Urine (UA) Normal (Normal); Ketones,Urine Negative (Negative); Leukocyte Esterase,Urine Small (Negative); Nitrite,Urine Negative (Negative); Protein,Urine Negative (Neg-Trace); Specific Gravity,Urine 1.015 (1.010-1.025); Urobilinogen,Urine Normal (Normal)
[2021-12-09 12:07] LABS: RBC,Urine 50-100 per hpf (0-3); Squamous Epithelial Cell,Urine Few per hpf (None-Few); WBC,Urine 0-3 per hpf (0-3)
[2021-12-09 12:08] LABS: Bacteria,Urine Few per hpf (None-Few)
[2021-12-09 12:11] LABS: Basophils % 0.2 %; Eosinophils % 0.4 %; Hematocrit 37.6 % (35.3-44.9); Hemoglobin 11.5 g/dL (11.5-15.4); Immature Granulocytes % 0.5 % (0-4); Lymphocytes # 0.4 K/mcL (0.6-4.6); Lymphocytes % 5.2 %; Mean Corpuscular HGB Conc 30.6 g/dL (31.6-35.5); Mean Corpuscular Hemoglobin 24.2 pg (28.0-33.3); Mean Corpuscular Volume 79.2 fL (83.0-100.0); Mean Platelet Volume 10.9 fL (9.4-12.4); Monocytes # 0.4 K/mcL (0.0-1.3); Monocytes % 4.3 %; Neutrophils # 7.3 K/mcL (1.6-8.9); Nucleated Red Blood Cells 0.4 /100 WBC (0); Platelet Count 240 K/mcL (140-400); Red Blood Count 4.75 M/mcL (3.82-4.97); Red Cell Distribution Width 17.1 % (11.5-14.5); Segmented Neutrophils % 89.4 %; White Blood Count 8.2 K/mcL (4.3-11.1)
[2021-12-09] MEDS: Ketoconazole 2% CRM 15 GM TUBE TP SCH (12:21)
[2021-12-09 12:28] LABS: BUN/Creatinine Ratio 13 (6-26); Blood Urea Nitrogen 15 mg/dL (6-20); Calcium 9.1 mg/dL (8.6-10.3); Carbon Dioxide 29 mEq/L (23-29); Chloride 95 mEq/L (98-107); Glucose 139 mg/dL (70-105); Osmolality,Calculated 277 (280-300); Potassium 4.6 mEq/L (3.5-5.1); Sodium 132 mEq/L (136-145); eGFR For African Americans > 60 (> 60); eGFR For Non-African Americans 53 (> 60)
[2021-12-09] MEDS ORDERED: cefTRIAXone 2,000 MG in 0.9 % Sodium Chloride Mini Bag 100 ML IVPB SCH (13:00)
[2021-12-09] MEDS ORDERED: *HR* Metoprolol 5 MG/5 ML VIAL IVP ONE (13:00)
[2021-12-09] MEDS ORDERED: Bismuth Subsalicylate 120 ML ORAL SUSPENSION PO PRN (14:01)
[2021-12-09] MEDS ORDERED: Bisacodyl 10 MG RECTAL SUPPOSITORY RC ONE (15:54)
[2021-12-09] MEDS: *HR* HYDROcodone/Acet 5/325 mg TABLET PO PRN ×2 (18:18→23:55)
[2021-12-09] MEDS: ARGININE 500 MG PO SCH (18:24)
[2021-12-09] MEDS: Mirtazapine 15 MG TABLET PO SCH (23:01)
[2021-12-10] MEDS ORDERED: 0.9 % Sodium Chloride 500 ML IVC ONE (02:05)
[2021-12-10] MEDS ORDERED: 0.9 % Sodium Chloride 1,000 ML ONE (02:13)
[2021-12-10] MEDS ORDERED: 0.9 % Sodium Chloride 1,000 ML IVC ONE (02:26)
[2021-12-10 02:30] LABS: Hemoglobin 10.7 g/dL (11.5-15.4); Mean Corpuscular HGB Conc 30.6 g/dL (31.6-35.5); Mean Corpuscular Hemoglobin 24.2 pg (28.0-33.3); Mean Corpuscular Volume 79.2 fL (83.0-100.0); Platelet Count 242 K/mcL (140-400); Red Blood Count 4.42 M/mcL (3.82-4.97); Red Cell Distribution Width 17.2 % (11.5-14.5); White Blood Count 15.2 K/mcL (4.3-11.1)
[2021-12-10] MEDS ORDERED: Isovue-370 500 ML BOTTLE IVP ONE (02:37)
[2021-12-10 02:51] LABS: Albumin 3.5 g/dL (3.5-5.7); Bilirubin,Direct 0.2 mg/dL (0.0-0.2); Bilirubin,Indirect 0.4 mg/dL (0.0-1.0); Bilirubin,Total 0.6 mg/dL (0.3-1.0); Calcium 8.6 mg/dL (8.6-10.3); Globulin 3.5 g/dL (2.4-3.5); Potassium 4.1 mEq/L (3.5-5.1)
[2021-12-10] MEDS ORDERED: MIDAZOLAM HCL IVC SCH (03:30)
[2021-12-10] MEDS ORDERED: SODIUM CHLORIDE IVC SCH (03:30)
[2021-12-10 04:11] LABS: ABG Base Excess 1 mEq/L (-2 to 3); ABG HCO3 30 mEq/L (21-27); ABG Oxygen Saturation 92 % (95-98); ABG PCO2 67 mmHg (35-45); ABG PH 7.26 pH Units (7.32-7.45); ABG PO2 75 mmHg (85-104); ABG TCO2 32 mEq/L (20-26)
[2021-12-10] MEDS ORDERED: *HR* Dextrose 50 % in Water (Syg) 50 ML SYRINGE IVP ONE (04:14)
[2021-12-10] MEDS ORDERED: *HR* Dextrose 50 % in Water (Syg) 50 ML SYRINGE ONE (04:20)
[2021-12-10] MEDS: *HR* Enoxaparin 40 MG/0.4 ML SYRINGE SQ SCH (06:58)
[2021-12-10] MEDS: Cefepime HCl 1,000 MG in Water for inj. (sterile) 10 ML IVP SCH ×3 (06:59→20:54)
[2021-12-10] MEDS: Insulin LISPRO 300 UNITS/3 ML VIAL SUBQ SCH ×3 (07:50→16:39)
[2021-12-10] MEDS: Loratadine 10 MG TABLET PO SCH (08:46)
[2021-12-10] MEDS: Furosemide 20 MG TABLET PO SCH (08:46)
[2021-12-10] MEDS: lamoTRIgine 100 MG TABLET PO SCH (08:46)
[2021-12-10] MEDS: ALPHA LIPOIC ACID 600 MG PO SCH (08:47)
[2021-12-10] MEDS: Pregabalin 50 MG CAPSULE PO SCH ×3 (08:47→20:54)
[2021-12-10] MEDS: (Fish Oil 1,000 Mg Softgel) PO SCH ×2 (08:47→20:54)
[2021-12-10] MEDS: Multivit/Ca/Min/Fe/FA 1 TAB TABLET PO SCH (08:48)
[2021-12-10] MEDS: Dulaglutide [Trulicity] 1.5 MG/0.5 ML Pen.Injctr SQ SCH (08:48)
[2021-12-10] MEDS: Vitamin B Complex/Vit C/Vit E 1 EACH TABLET PO SCH (08:48)
[2021-12-10] MEDS: Metoprolol XL (24 HR) Succ 50 MG TAB.ER.24H PO SCH (08:49)
[2021-12-10] MEDS: lisinopriL 5 MG TABLET PO SCH (08:49)
[2021-12-10] MEDS: Cholecalciferol (D-3) 1,000 UNIT (25MCG) TABLET PO SCH (08:49)
[2021-12-10] MEDS ORDERED: Albumin 25% 25gram/100mL 25 GM/100 ML IV.SOLN IVPB ONE (09:43)
[2021-12-10] MEDS ORDERED: Ipratropium/Albuterol Neb 3 ML IH SCH (10:00)
[2021-12-10] MEDS: Nystatin POWDER 30 GM BOTTLE TP SCH ×3 (11:23→20:54)
[2021-12-10] MEDS: Ammonium Lactate 30 APPL/225 GM BOTTLE TP SCH (11:24)
[2021-12-10] MEDS: Ketoconazole 2% CRM 15 GM TUBE TP SCH (11:27)
[2021-12-10] MEDS ORDERED: Ipratropium/Albuterol Neb 3 ML IH PRN (12:25)
[2021-12-10] MEDS: ARGININE 500 MG PO SCH (15:15)
[2021-12-10 17:58] VITALS: PULSE 94
[2021-12-10] MEDS ORDERED: *HR* Heparin 5,000 UNIT/ML VIAL IVP ONE (18:27)
[2021-12-10] MEDS ORDERED: *HR* Heparin 5,000 UNIT/ML VIAL IVP PRN ×2 (18:27)
[2021-12-10] MEDS ORDERED: Heparin 25,000UNIT/250ML 1/2NS 25,000 UNIT/250 ML IV.SOLN IVC SCH (18:30)
[2021-12-10 19:00] LABS: Hematocrit 33.4 % (35.3-44.9); Hemoglobin 10.1 g/dL (11.5-15.4); Mean Corpuscular HGB Conc 30.2 g/dL (31.6-35.5); Mean Corpuscular Hemoglobin 24.3 pg (28.0-33.3); Mean Corpuscular Volume 80.3 fL (83.0-100.0); Mean Platelet Volume 10.8 fL (9.4-12.4); Platelet Count 210 K/mcL (140-400); Red Blood Count 4.16 M/mcL (3.82-4.97); Red Cell Distribution Width 17.3 % (11.5-14.5); White Blood Count 17.3 K/mcL (4.3-11.1)
[2021-12-10 19:13] LABS: Heparin anti-factor XA UFH 0.08 IU/mL (0.30-0.70)
[2021-12-10 19:14] LABS: INR 1.4; Prothrombin Time 15.2 Seconds (9.4-12.1)
[2021-12-10 20:29] VITALS: BP 143/70; RESP 22; TEMP 98.1; O2SAT 96
[2021-12-10] MEDS: Mirtazapine 15 MG TABLET PO SCH (20:54)
[2021-12-10] MEDS ORDERED: lamoTRIgine 100 MG TABLET PO SCH (21:00)
== END 2021-12-10 20:46 | disposition short-term general hospital (02) | DRG 559 ==
LOC: INPPIK 21:28
PROVIDERS: ADMIT Family Medicine; ATTEND Family Medicine

== ENCOUNTER 2021-12-19 18:15 | Inpatient (IN) ==
[2021-12-19] MEDS ORDERED: *HR* Dextrose 50 % in Water (Syg) 50 ML SYRINGE IVP PRN (20:18)
[2021-12-19] MEDS ORDERED: D5% in Water 1,000 ML IVC PRN (20:18)
[2021-12-19] MEDS ORDERED: Dextrose Gel 15 GM/37.5 ML TUBE PO PRN ×2 (20:18)
[2021-12-19] MEDS ORDERED: NON-FORMULARY MEDICATION 1 EACH EACH (Albuterol Sulfate 8.5 GM Hfa.Aer.Ad) IH PRN (20:19)
[2021-12-19] MEDS ORDERED: Insulin LISPRO 300 UNITS/3 ML VIAL SUBQ SCH (21:00)
[2021-12-19] MEDS: *HR* Metformin 500 MG TABLET PO SCH (23:55)
[2021-12-19] MEDS: Pregabalin 50 MG CAPSULE PO SCH (23:56)
[2021-12-19] MEDS: (Omega-3/Dha/Epa/Fish Oil) PO SCH (23:57)
[2021-12-19] MEDS: Mirtazapine 15 MG TABLET PO SCH (23:57)
[2021-12-20 06:56] LABS: Basophils % 0.4 %; Eosinophils # 0.1 K/mcL (0.0-0.6); Eosinophils % 0.5 %; Hematocrit 39.9 % (35.3-44.9); Hemoglobin 12.2 g/dL (11.5-15.4); Immature Granulocytes % 0.7 % (0-4); Lymphocytes # 2.3 K/mcL (0.6-4.6); Lymphocytes % 21.7 %; Mean Corpuscular HGB Conc 30.6 g/dL (31.6-35.5); Mean Corpuscular Hemoglobin 23.7 pg (28.0-33.3); Mean Corpuscular Volume 77.5 fL (83.0-100.0); Monocytes # 0.6 K/mcL (0.0-1.3); Monocytes % 6.1 %; Neutrophils # 7.4 K/mcL (1.6-8.9); Platelet Count 337 K/mcL (140-400); Red Blood Count 5.15 M/mcL (3.82-4.97); Red Cell Distribution Width 16.4 % (11.5-14.5); Segmented Neutrophils % 70.6 %; White Blood Count 10.5 K/mcL (4.3-11.1)
[2021-12-20 07:15] LABS: BUN/Creatinine Ratio 30 (6-26); Blood Urea Nitrogen 31 mg/dL (6-20); Calcium 9.8 mg/dL (8.6-10.3); Carbon Dioxide 32 mEq/L (23-29); Chloride 90 mEq/L (98-107); Glucose 301 mg/dL (70-105); Osmolality,Calculated 290 (280-300); Potassium 3.6 mEq/L (3.5-5.1); Sodium 131 mEq/L (136-145); eGFR For African Americans > 60 (> 60); eGFR For Non-African Americans > 60 (> 60)
[2021-12-20] MEDS: Pregabalin 50 MG CAPSULE PO SCH ×3 (08:11→20:56)
[2021-12-20] MEDS: Vitamin B Complex/Vit C/Vit E 1 EACH TABLET PO SCH (08:12)
[2021-12-20] MEDS: *HR* Metformin 500 MG TABLET PO SCH ×2 (08:12→20:56)
[2021-12-20] MEDS: Furosemide 20 MG TABLET PO SCH (08:12)
[2021-12-20] MEDS: Metoprolol XL (24 HR) Succ 50 MG TAB.ER.24H PO SCH (08:12)
[2021-12-20] MEDS: Loratadine 10 MG TABLET PO SCH (08:12)
[2021-12-20] MEDS: lamoTRIgine 100 MG TABLET PO SCH ×2 (08:12→17:20)
[2021-12-20] MEDS: Multivit/Ca/Min/Fe/FA 1 TAB TABLET PO SCH (08:12)
[2021-12-20] MEDS: levoFLOXacin 750 MG TABLET PO SCH (08:12)
[2021-12-20] MEDS: Cholecalciferol (D-3) 1,000 UNIT (25MCG) TABLET PO SCH (08:12)
[2021-12-20] MEDS: lisinopriL 5 MG TABLET PO SCH (08:12)
[2021-12-20] MEDS: Insulin LISPRO 300 UNITS/3 ML VIAL SUBQ SCH ×4 (08:13→20:57)
[2021-12-20] MEDS: (Omega-3/Dha/Epa/Fish Oil) PO SCH (08:13)
[2021-12-20] MEDS: Ketoconazole 2% CRM 15 GM TUBE TP SCH (08:13)
[2021-12-20] MEDS: Ammonium Lactate 30 APPL/225 GM BOTTLE TP SCH (08:13)
[2021-12-20] MEDS ORDERED: ALPHA LIPOIC ACID 600 MG PO SCH (09:00)
[2021-12-20] MEDS: tiZANidine 4 MG TABLET PO PRN ×2 (15:02→23:26)
[2021-12-20] MEDS ORDERED: Acetaminophen 325 MG TABLET PO PRN (15:10)
[2021-12-20] MEDS ORDERED: Dextrose Gel 15 GM/37.5 ML TUBE PO PRN ×2 (15:25)
[2021-12-20] MEDS ORDERED: D5% in Water 1,000 ML IVC PRN (15:25)
[2021-12-20] MEDS ORDERED: *HR* Dextrose 50 % in Water (Syg) 50 ML SYRINGE IVP PRN (15:25)
[2021-12-20] MEDS ORDERED: ARGININE 500 MG PO SCH (18:00)
[2021-12-20] MEDS: Mirtazapine 15 MG TABLET PO SCH (20:56)
[2021-12-20] MEDS ORDERED: Albuterol 2.5 MG/3 ML NEBULIZER IH PRN (22:48)
[2021-12-21] MEDS: Insulin LISPRO 300 UNITS/3 ML VIAL SUBQ SCH ×4 (07:06→22:24)
[2021-12-21] MEDS: *HR* Enoxaparin 40 MG/0.4 ML SYRINGE SQ SCH (07:06)
[2021-12-21] MEDS: Pregabalin 50 MG CAPSULE PO SCH ×3 (07:07→22:12)
[2021-12-21] MEDS: Ammonium Lactate 30 APPL/225 GM BOTTLE TP SCH (07:07)
[2021-12-21] MEDS: Multivit/Ca/Min/Fe/FA 1 TAB TABLET PO SCH (07:07)
[2021-12-21] MEDS: *HR* Metformin 500 MG TABLET PO SCH ×2 (07:07→22:11)
[2021-12-21] MEDS: Cholecalciferol (D-3) 1,000 UNIT (25MCG) TABLET PO SCH (07:07)
[2021-12-21] MEDS: Loratadine 10 MG TABLET PO SCH (07:07)
[2021-12-21] MEDS: Ketoconazole 2% CRM 15 GM TUBE TP SCH (07:07)
[2021-12-21] MEDS: Vitamin B Complex/Vit C/Vit E 1 EACH TABLET PO SCH (07:07)
[2021-12-21] MEDS: lamoTRIgine 100 MG TABLET PO SCH ×2 (07:07→18:07)
[2021-12-21] MEDS: levoFLOXacin 750 MG TABLET PO SCH (07:07)
[2021-12-21] MEDS: tiZANidine 4 MG TABLET PO PRN ×2 (10:57→22:18)
[2021-12-21] MEDS: Mirtazapine 15 MG TABLET PO SCH (22:12)
[2021-12-22] MEDS: *HR* Enoxaparin 40 MG/0.4 ML SYRINGE SQ SCH (05:51)
[2021-12-22] MEDS: levoFLOXacin 750 MG TABLET PO SCH (07:41)
[2021-12-22] MEDS: Furosemide 20 MG TABLET PO SCH (07:41)
[2021-12-22] MEDS: tiZANidine 4 MG TABLET PO PRN ×3 (07:41→22:06)
[2021-12-22] MEDS: Cholecalciferol (D-3) 1,000 UNIT (25MCG) TABLET PO SCH (07:41)
[2021-12-22] MEDS: Pregabalin 50 MG CAPSULE PO SCH ×3 (07:41→22:06)
[2021-12-22] MEDS: *HR* Metformin 500 MG TABLET PO SCH ×2 (07:41→22:07)
[2021-12-22] MEDS: Multivit/Ca/Min/Fe/FA 1 TAB TABLET PO SCH (07:41)
[2021-12-22] MEDS: lamoTRIgine 100 MG TABLET PO SCH ×2 (07:42→17:20)
[2021-12-22] MEDS: Insulin LISPRO 300 UNITS/3 ML VIAL SUBQ SCH ×4 (07:42→22:09)
[2021-12-22] MEDS: lisinopriL 5 MG TABLET PO SCH (07:42)
[2021-12-22] MEDS: Metoprolol XL (24 HR) Succ 50 MG TAB.ER.24H PO SCH (07:42)
[2021-12-22] MEDS: Loratadine 10 MG TABLET PO SCH (07:42)
[2021-12-22] MEDS: Vitamin B Complex/Vit C/Vit E 1 EACH TABLET PO SCH (07:42)
[2021-12-22] MEDS: Ammonium Lactate 30 APPL/225 GM BOTTLE TP SCH (07:51)
[2021-12-22] MEDS: Ketoconazole 2% CRM 15 GM TUBE TP SCH (07:51)
[2021-12-22] MEDS: Mirtazapine 15 MG TABLET PO SCH (22:07)
[2021-12-23] MEDS: *HR* Enoxaparin 40 MG/0.4 ML SYRINGE SQ SCH (05:29)
[2021-12-23] MEDS: Insulin LISPRO 300 UNITS/3 ML VIAL SUBQ SCH ×4 (06:41→21:08)
[2021-12-23] MEDS ORDERED: Insulin LISPRO 300 UNITS/3 ML VIAL SUBQ ONE (08:44)
[2021-12-23] MEDS: Pregabalin 50 MG CAPSULE PO SCH ×3 (08:51→21:03)
[2021-12-23] MEDS: *HR* Metformin 500 MG TABLET PO SCH ×2 (08:51→21:04)
[2021-12-23] MEDS: Cholecalciferol (D-3) 1,000 UNIT (25MCG) TABLET PO SCH (08:52)
[2021-12-23] MEDS: lamoTRIgine 100 MG TABLET PO SCH ×2 (08:52→17:53)
[2021-12-23] MEDS: Loratadine 10 MG TABLET PO SCH (08:52)
[2021-12-23] MEDS: Furosemide 20 MG TABLET PO SCH (08:52)
[2021-12-23] MEDS: Vitamin B Complex/Vit C/Vit E 1 EACH TABLET PO SCH (08:52)
[2021-12-23] MEDS: Multivit/Ca/Min/Fe/FA 1 TAB TABLET PO SCH (08:52)
[2021-12-23] MEDS: levoFLOXacin 750 MG TABLET PO SCH (08:52)
[2021-12-23] MEDS: lisinopriL 5 MG TABLET PO SCH (08:52)
[2021-12-23] MEDS: Metoprolol XL (24 HR) Succ 50 MG TAB.ER.24H PO SCH (08:53)
[2021-12-23] MEDS: Ammonium Lactate 30 APPL/225 GM BOTTLE TP SCH (09:16)
[2021-12-23] MEDS: Ketoconazole 2% CRM 15 GM TUBE TP SCH (09:16)
[2021-12-23] MEDS: tiZANidine 4 MG TABLET PO PRN ×2 (11:45→21:04)
[2021-12-23] MEDS ORDERED: Insulin DETEMIR 100 UNIT/ML X5UNITS SUBQ SCH (21:00)
[2021-12-23] MEDS: Mirtazapine 15 MG TABLET PO SCH (21:03)
[2021-12-24] MEDS: *HR* Enoxaparin 40 MG/0.4 ML SYRINGE SQ SCH ×2 (05:48→08:06)
[2021-12-24] MEDS: Cholecalciferol (D-3) 1,000 UNIT (25MCG) TABLET PO SCH (07:58)
[2021-12-24] MEDS: Multivit/Ca/Min/Fe/FA 1 TAB TABLET PO SCH (07:59)
[2021-12-24] MEDS: lamoTRIgine 100 MG TABLET PO SCH ×2 (07:59→16:58)
[2021-12-24] MEDS: Pregabalin 50 MG CAPSULE PO SCH ×3 (07:59→20:45)
[2021-12-24] MEDS: Furosemide 20 MG TABLET PO SCH (07:59)
[2021-12-24] MEDS: lisinopriL 5 MG TABLET PO SCH (07:59)
[2021-12-24] MEDS: Vitamin B Complex/Vit C/Vit E 1 EACH TABLET PO SCH (07:59)
[2021-12-24] MEDS: levoFLOXacin 750 MG TABLET PO SCH (07:59)
[2021-12-24] MEDS: Loratadine 10 MG TABLET PO SCH (07:59)
[2021-12-24] MEDS: Metoprolol XL (24 HR) Succ 50 MG TAB.ER.24H PO SCH (07:59)
[2021-12-24] MEDS: *HR* Metformin 500 MG TABLET PO SCH ×2 (07:59→20:45)
[2021-12-24] MEDS: Insulin LISPRO 300 UNITS/3 ML VIAL SUBQ SCH ×4 (08:00→20:46)
[2021-12-24] MEDS: Ammonium Lactate 30 APPL/225 GM BOTTLE TP SCH (08:01)
[2021-12-24] MEDS: Ketoconazole 2% CRM 15 GM TUBE TP SCH (08:02)
[2021-12-24] MEDS: tiZANidine 4 MG TABLET PO PRN ×2 (10:26→20:45)
[2021-12-24] MEDS ORDERED: (Dulaglutide [Trulicity] 1.5 MG/0.5 ML Pen.Injctr) SQ SCH (12:00)
[2021-12-24] MEDS: Mirtazapine 15 MG TABLET PO SCH (20:45)
[2021-12-24] MEDS: Insulin DETEMIR 100 UNIT/ML X5UNITS SUBQ SCH (20:47)
[2021-12-25] MEDS: *HR* Enoxaparin 40 MG/0.4 ML SYRINGE SQ SCH (06:12)
[2021-12-25] MEDS: Insulin LISPRO 300 UNITS/3 ML VIAL SUBQ SCH ×4 (10:23→21:45)
[2021-12-25] MEDS: Ammonium Lactate 30 APPL/225 GM BOTTLE TP SCH (10:23)
[2021-12-25] MEDS: Cholecalciferol (D-3) 1,000 UNIT (25MCG) TABLET PO SCH (10:24)
[2021-12-25] MEDS: Ketoconazole 2% CRM 15 GM TUBE TP SCH (10:24)
[2021-12-25] MEDS: Vitamin B Complex/Vit C/Vit E 1 EACH TABLET PO SCH (10:24)
[2021-12-25] MEDS: Multivit/Ca/Min/Fe/FA 1 TAB TABLET PO SCH (10:24)
[2021-12-25] MEDS: lamoTRIgine 100 MG TABLET PO SCH ×2 (10:24→18:32)
[2021-12-25] MEDS: Furosemide 20 MG TABLET PO SCH (10:25)
[2021-12-25] MEDS: *HR* Metformin 500 MG TABLET PO SCH ×2 (10:25→21:42)
[2021-12-25] MEDS: Loratadine 10 MG TABLET PO SCH (10:25)
[2021-12-25] MEDS: tiZANidine 4 MG TABLET PO PRN ×2 (10:25→18:36)
[2021-12-25] MEDS: lisinopriL 5 MG TABLET PO SCH (10:25)
[2021-12-25] MEDS: Metoprolol XL (24 HR) Succ 50 MG TAB.ER.24H PO SCH (10:25)
[2021-12-25] MEDS: Pregabalin 50 MG CAPSULE PO SCH ×3 (10:25→21:43)
[2021-12-25] MEDS: Mirtazapine 15 MG TABLET PO SCH (21:43)
[2021-12-25] MEDS: Insulin DETEMIR 100 UNIT/ML X5UNITS SUBQ SCH (21:44)
[2021-12-26] MEDS: *HR* Enoxaparin 40 MG/0.4 ML SYRINGE SQ SCH (06:09)
[2021-12-26] MEDS: Vitamin B Complex/Vit C/Vit E 1 EACH TABLET PO SCH (07:59)
[2021-12-26] MEDS: Multivit/Ca/Min/Fe/FA 1 TAB TABLET PO SCH (07:59)
[2021-12-26] MEDS: Furosemide 20 MG TABLET PO SCH (07:59)
[2021-12-26] MEDS: lisinopriL 5 MG TABLET PO SCH (07:59)
[2021-12-26] MEDS: Insulin LISPRO 300 UNITS/3 ML VIAL SUBQ SCH ×4 (07:59→21:01)
[2021-12-26] MEDS: Cholecalciferol (D-3) 1,000 UNIT (25MCG) TABLET PO SCH (08:00)
[2021-12-26] MEDS: Loratadine 10 MG TABLET PO SCH (08:00)
[2021-12-26] MEDS: tiZANidine 4 MG TABLET PO PRN ×2 (08:00→17:20)
[2021-12-26] MEDS: *HR* Metformin 500 MG TABLET PO SCH ×2 (08:00→20:52)
[2021-12-26] MEDS: Metoprolol XL (24 HR) Succ 50 MG TAB.ER.24H PO SCH (08:00)
[2021-12-26] MEDS: Pregabalin 50 MG CAPSULE PO SCH ×4 (08:00→20:50)
[2021-12-26] MEDS: Ammonium Lactate 30 APPL/225 GM BOTTLE TP SCH (08:01)
[2021-12-26] MEDS: Ketoconazole 2% CRM 15 GM TUBE TP SCH (08:02)
[2021-12-26] MEDS: lamoTRIgine 100 MG TABLET PO SCH ×2 (08:02→17:15)
[2021-12-26] MEDS ORDERED: *HR* LORazepam 1 MG TABLET PO PRN (09:08)
[2021-12-26] MEDS: Mirtazapine 15 MG TABLET PO SCH (20:51)
[2021-12-26] MEDS: Insulin DETEMIR 100 UNIT/ML X5UNITS SUBQ SCH (21:01)
[2021-12-27] MEDS: *HR* Enoxaparin 40 MG/0.4 ML SYRINGE SQ SCH (05:37)
[2021-12-27] MEDS: Insulin LISPRO 300 UNITS/3 ML VIAL SUBQ SCH ×4 (07:48→20:46)
[2021-12-27] MEDS: Cholecalciferol (D-3) 1,000 UNIT (25MCG) TABLET PO SCH (07:49)
[2021-12-27] MEDS: *HR* Metformin 500 MG TABLET PO SCH ×2 (07:49→20:45)
[2021-12-27] MEDS: Pregabalin 50 MG CAPSULE PO SCH ×3 (07:49→20:44)
[2021-12-27] MEDS: Loratadine 10 MG TABLET PO SCH (07:49)
[2021-12-27] MEDS: Metoprolol XL (24 HR) Succ 50 MG TAB.ER.24H PO SCH (07:49)
[2021-12-27] MEDS: lamoTRIgine 100 MG TABLET PO SCH ×2 (07:49→17:50)
[2021-12-27] MEDS: Multivit/Ca/Min/Fe/FA 1 TAB TABLET PO SCH (07:49)
[2021-12-27] MEDS: lisinopriL 5 MG TABLET PO SCH (07:50)
[2021-12-27] MEDS: Furosemide 20 MG TABLET PO SCH (07:50)
[2021-12-27] MEDS: Vitamin B Complex/Vit C/Vit E 1 EACH TABLET PO SCH (07:50)
[2021-12-27] MEDS ORDERED: Bismuth Subsalicylate 120 ML ORAL SUSPENSION PO PRN (09:42)
[2021-12-27] MEDS: tiZANidine 4 MG TABLET PO PRN ×2 (11:22→20:45)
[2021-12-27] MEDS: Ammonium Lactate 30 APPL/225 GM BOTTLE TP SCH (11:42)
[2021-12-27] MEDS: Ketoconazole 2% CRM 15 GM TUBE TP SCH (11:43)
[2021-12-27] MEDS: Mirtazapine 15 MG TABLET PO SCH (20:46)
[2021-12-27] MEDS: Insulin DETEMIR 100 UNIT/ML X5UNITS SUBQ SCH (20:46)
[2021-12-28] MEDS: tiZANidine 4 MG TABLET PO PRN (05:42)
[2021-12-28] MEDS: *HR* Enoxaparin 40 MG/0.4 ML SYRINGE SQ SCH (05:42)
[2021-12-28 06:54] VITALS: BP 108/62; PULSE 108; RESP 17; TEMP 98.9; O2SAT 92
[2021-12-28] MEDS: Pregabalin 50 MG CAPSULE PO SCH (08:54)
[2021-12-28] MEDS: *HR* Metformin 500 MG TABLET PO SCH (08:54)
[2021-12-28] MEDS: Furosemide 20 MG TABLET PO SCH (08:54)
[2021-12-28] MEDS: Cholecalciferol (D-3) 1,000 UNIT (25MCG) TABLET PO SCH (08:54)
[2021-12-28] MEDS: Metoprolol XL (24 HR) Succ 50 MG TAB.ER.24H PO SCH (08:55)
[2021-12-28] MEDS: lisinopriL 5 MG TABLET PO SCH (08:55)
[2021-12-28] MEDS: Vitamin B Complex/Vit C/Vit E 1 EACH TABLET PO SCH (08:55)
[2021-12-28] MEDS: lamoTRIgine 100 MG TABLET PO SCH (08:55)
[2021-12-28] MEDS: Multivit/Ca/Min/Fe/FA 1 TAB TABLET PO SCH (08:55)
[2021-12-28] MEDS: Ketoconazole 2% CRM 15 GM TUBE TP SCH (08:56)
[2021-12-28] MEDS: Ammonium Lactate 30 APPL/225 GM BOTTLE TP SCH (08:57)
[2021-12-28] MEDS: Insulin LISPRO 300 UNITS/3 ML VIAL SUBQ SCH ×2 (09:01→12:16)
[2021-12-28] MEDS: Loratadine 10 MG TABLET PO SCH (09:41)
== END 2021-12-28 13:57 | disposition home health service (06) | DRG 871 ==
LOC: INPPIK 22:42
PROVIDERS: ADMIT Family Medicine; ATTEND Family Medicine